=== PATIENT | male | born 2000 | race American Indian/Alaskan Native ===

== ENCOUNTER 2021-02-02 11:42 | Emergency (ER) | payer OTHER ==
[2021-02-02 12:01] VITALS: BP 124/82
--- NOTE | 2021-02-02 12:25 | XRay Report ---
CHEST 2 VIEWS INDICATION / CLINICAL INFORMATION: cough. COMPARISON: None available. FINDINGS: SUPPORT DEVICES: None. HEART / MEDIASTINUM: No significant abnormality. LUNGS / PLEURA: No significant pulmonary or pleural abnormality. No pneumothorax. ADDITIONAL FINDINGS: No significant additional findings. IMPRESSION: 1. No acute findings. Signer Name: Davidson Bonilla MD Signed: 02/02/2021 12:21 PM Workstation Name: [id number]
--- NOTE | 2021-02-02 12:50 | Emergency Department Report ---
ED General Adult HPI - General Chief complaint: Dyspnea/Respdistress Stated complaint: COUGH, HEADACHE Time Seen by Provider: 02/02/21 12:49 Source: patient Mode of arrival: Ambulatory Limitations: No Limitations - History of Present Illness Severity scale (0 -10): 1 - Related Data Allergies Allergy/AdvReac Type Severity Reaction Status Date / Time No Known Allergies Allergy Unverified 02/02/21 11:56 ED Review of Systems ROS: Stated complaint: COUGH, HEADACHE Other details as noted in HPI ED Past Medical Hx - Past Medical History Previous Medical History?: Yes Hx Asthma: Yes - Surgical History Past Surgical History?: No ED Physical Exam - General Limitations: No Limitations ED Course Vital Signs 02/02/21 11:58 Temperature 99.2 F Pulse Rate 94 H Respiratory 18 Rate Blood Pressure 124/82 [Right] O2 Sat by Pulse 97 Oximetry Critical care attestation.: If time is entered above; I have spent that time in minutes in the direct care of this critically ill patient, excluding procedure time. ED Disposition Condition: Stable
--- NOTE | 2021-02-02 13:11 | Emergency Department Report ---
- General Chief Complaint: Dyspnea/Respdistress Stated Complaint: COUGH, HEADACHE Time Seen by Provider: 02/02/21 12:49 Source: patient Mode of arrival: Ambulatory Limitations: No Limitations - History of Present Illness Initial Comments: 20-year-old male presents to the ER today with a 3-day history of cough and URI symptoms. He reports productive cough of yellow sputum, rhinorrhea nasal congestion and he states that he did have a headache for 1 day but this has since resolved. He states that his significant other was also recently sick with a cold and he is also here with his infant baby boy who is also sick with a cold. He does report a history of childhood asthma but he denies any wheezing, chest pain or shortness of breath in the past 3 days. He denies any recent travel. He denies any fever or chills. He reports no other symptoms at this time. MD Complaint: cough, rhinorrhea, nasal congestion - Related Data Previous Rx's Medication Instructions Recorded Last Taken Type Benzonatate [Tessalon Perles] 100 mg PO Q8HR #30 capsule 02/02/21 Unknown Rx Cetirizine HCl [Zyrtec 10mg tab] 10 mg PO DAILY #30 tablet 02/02/21 Unknown Rx Fluticasone [Flonase] 2 spray NS QDAY #1 bottle 02/02/21 Unknown Rx Allergies Allergy/AdvReac Type Severity Reaction Status Date / Time No Known Allergies Allergy Unverified 02/02/21 11:56 ED Review of Systems ROS: Stated complaint: COUGH, HEADACHE Other details as noted in HPI Comment: All other systems reviewed and negative ENT: congestion, other Respiratory: cough Neurological: headache ED Past Medical Hx - Past Medical History Previous Medical History?: Yes Hx Asthma: Yes - Surgical History Past Surgical History?: No - Medications Home Medications: Home Medications Medication Instructions Recorded Confirmed Last Taken Type Benzonatate [Tessalon Perles] 100 mg PO Q8HR #30 capsule 02/02/21 Unknown Rx Cetirizine HCl [Zyrtec 10mg tab] 10 mg PO DAILY #30 tablet 02/02/21 Unknown Rx Fluticasone [Flonase] 2 spray NS QDAY #1 bottle 02/02/21 Unknown Rx ED Physical Exam - General Limitations: No Limitations General appearance: alert, in no apparent distress - Head Head exam: Present: atraumatic, normocephalic, normal inspection - Eye Eye exam: Present: normal appearance, PERRL, EOMI Pupils: Present: normal accommodation - ENT ENT exam: Present: normal exam, mucous membranes moist, TM's normal bilaterally - Neck Neck exam: Present: normal inspection, full ROM. Absent: meningismus - Respiratory Respiratory exam: Present: normal lung sounds bilaterally. Absent: respiratory distress, wheezes, rales, rhonchi, stridor - Cardiovascular Cardiovascular Exam: Present: regular rate, normal rhythm, normal heart sounds - GI/Abdominal GI/Abdominal exam: Present: soft. Absent: distended, tenderness, guarding, rebound - Back Exam Back exam: Present: normal inspection, full ROM - Neurological Exam Neurological exam: Present: alert, oriented X3, CN II-XII intact, normal gait - Psychiatric Psychiatric exam: Present: normal affect, normal mood - Skin Skin exam: Present: intact ED Course Vital Signs 02/02/21 11:58 Temperature 99.2 F Pulse Rate 94 H Respiratory 18 Rate Blood Pressure 124/82 [Right] O2 Sat by Pulse 97 Oximetry ED Medical Decision Making - Radiology Data Radiology results: report reviewed Patient: ROWAN SCHULTZ MR#: [id number] : 2000 Acct:[id number] Age/Sex: 20 / M ADM Date: 02/02/21 Loc: ED Attending Dr: Ordering Physician: JAMES PIÑA Date of Service: 02/02/21 Procedure(s): XR chest routine 2V Accession Number(s): [id number] cc: JAMES PIÑA Fluoro Time In Minutes: CHEST 2 VIEWS INDICATION / CLINICAL INFORMATION: cough. COMPARISON: None available. FINDINGS: SUPPORT DEVICES: None. HEART / MEDIASTINUM: No significant abnormality. LUNGS / PLEURA: No significant pulmonary or pleural abnormality. No pneumothorax. ADDITIONAL FINDINGS: No significant additional findings. IMPRESSION: 1. No acute findings. Signer Name: Davidson Bonilla MD Signed: 02/02/2021 12:21 PM Workstation Name: [id number] Transcribed By: LAURA Dictated By: Davidson Bonilla MD Electronically Authenticated By: Davidson Bonilla MD Signed Date/Time: 02/02/21 1221 DD/ 1220 TD/TT: - Medical Decision Making The patient is resting comfortably, is alert and in no distress. He has normal mental status and is neurologically intact. He appears well and and there is no significant dehydration. There is no respiratory distress and no signs of systemic toxicity. Chest x-ray shows nothing acute. His history, exam, diagnostic testing and current condition do not demonstrate an infectious process such as meningitis, severe pneumonia, retropharyngeal abscess, epiglottitis, sepsis or other serious bacterial infection requiring further testing, treatment, consultation or admission at this time. His vital signs have been stable. Discussed suspected diagnosis and treatment plan with patient. The patient's condition is stable and appropriate for discharge. The patient will pursue further outpatient evaluation with the primary care physician. Critical care attestation.: If time is entered above; I have spent that time in minutes in the direct care of this critically ill patient, excluding procedure time. ED Disposition Clinical Impression: URI (upper respiratory infection) Disposition: TO HOME OR SELFCARE Is pt being admited?: No Does the pt Need Aspirin: No Condition: Stable Instructions: Cough, Adult, [id number], Upper Respiratory Infection, Adult, [id number] Additional Instructions: Recommend the use of Flonase, take the Zyrtec and the Tessalon Perles as prescribed. Recommend I drink lots of fluids, take a multivitamin and rest and follow-up closely with your primary care doctor. Return to the ER if your symptoms changes or worsens in any way. Prescriptions: Fluticasone [Flonase] 2 spray NS QDAY #1 bottle Benzonatate [Tessalon Perles] 100 mg PO Q8HR #30 capsule Cetirizine HCl [Zyrtec 10mg tab] 10 mg PO DAILY #30 tablet Referrals: VU GRAHAM MD [Staff Physician] - 3-5 Days Forms: Work/School Release Form(ED) Time of Disposition: 13:10
== END 2021-02-02 14:16 | disposition home or self-care (01) ==
LOC: ED 11:42
DX: J06.9 Acute upper respiratory infection, unspecified (principal); J45.909 Unspecified asthma, uncomplicated; Z79.899 Other long term (current) drug therapy
CPT/HCPCS: 71046